=== PATIENT | male | born 1985 ===

== ENCOUNTER 2021-08-08 13:12 | Day surgery (SDC) | payer OTHER, BC ==
[~2021-08-08] VITALS: Ht 177.8 cm; Wt 87.4 kg
--- NOTE | 2021-08-08 15:38 | NUR ---
08/08/21 1538 Doc Hernandez BUPIVACAINE 0.5% 50 MLS MIXED WITH EPI 0.25ML PER ORDER TO CONSTITUTE BUPIVACAINE 0.5% 1:200,000 FOR INJECTION AT OPSITE BY DR WILLS. MULTI DOSE VIAL, MIXED & DIVIDED IN OR BY RN.
== END 2021-08-08 17:23 | disposition home or self-care (01) ==
LOC: ORSCSDS 13:12
PROVIDERS: Podiatrist Foot & Ankle Surgery
PROC: 0QSK04Z Reposition Left Fibula with Internal Fixation Device, Open Approach (ICD-10-PCS; principal; 2021-08-08 15:15)
DX: S82.842A Displaced bimalleolar fracture of left lower leg, initial encounter for closed fracture (principal); D69.6 Thrombocytopenia, unspecified
CPT/HCPCS: C1713; J0171; J0690; J1100; J1885; J2250; J2405; J2704; J3010; J7120

== ENCOUNTER → 2023-07-11 | Outpatient (CLI) | payer OTHER ==
[2023-07-11 09:41] LABS: BASOPHILS ABSOLUTE AUTO 0.02 K/mm3 (0.00-0.23); BASOPHILS PERCENT AUTO 1 % (0-2); EOSINOPHILS ABSOLUTE AUTO 0.11 K/mm3 (0.00-0.68); EOSINOPHILS PERCENT AUTO 3 % (0-6); Hematocrit 41.3 % (37.0-53.0); Hemoglobin 14.4 g/dL (13.5-17.5); IMMATURE GRAN ABSOLUTE AUTO 0.02 K/mm3 (0.00-0.10); IMMATURE GRAN PERCENT AUTO 1 % (0-1); LYMPHOCYTES ABSOLUTE AUTO 1.28 K/mm3 (0.84-5.20); LYMPHOCYTES PERCENT AUTO 31 % (21-46); MONOCYTES ABSOLUTE AUTO 0.24 K/mm3 (0.16-1.47); MONOCYTES PERCENT AUTO 6 % (4-13); Mean Corpuscular HGB 29.3 pg (26.0-34.0); Mean Corpuscular HGB Conc 34.9 g/dL (31.5-36.5); Mean Corpuscular Volume 84 fL (80-100); NEUTROPHILS ABSOLUTE AUTO 2.47 K/mm3 (1.96-9.15); NEUTROPHILS PERCENT AUTO 60 % (41-73); RDW Coefficient Variation 13.2 % (11.7-14.2); RDW Standard Deviation 39.8 fL (35.1-46.3); Red Blood Cell Count 4.91 M/mm3 (4.30-5.90); White Blood Cell Count 4.14 K/mm3 (4.00-11.30)
[2023-07-11 10:21] LABS: Mean Platelet Volume 10.6 fL (9.1-12.4); Platelet Count 120 K/mm3 (150-400)
== END | disposition home or self-care (01) ==
LOC: LAB 09:37 → LAB SHORT 09:37
PROVIDERS: Family Medicine
DX: L03.113 Cellulitis of right upper limb (principal)
CPT/HCPCS: 85025; 86140

== ENCOUNTER → 2025-08-15 | Outpatient (CLI) | payer OTHER ==
[2025-08-15 12:17] LABS: BODY FLUID RBC 0.007 M/mm3 (0-0)
[2025-08-15 12:24] LABS: Appearance, Synovial Fluid Cloudy (Clear); Color, Synovial Fluid Dark Yellow (None-P Yel); RBC Count, Synovial Fluid 7000 /mm3 (0-0); WBC Count, Synovial Fluid 113 /mm3 (0-180)
[2025-08-15 13:11] LABS: Lymphs, Synovial Fluid 74 % (0-15); Monocytes/Macrophages, Synovia 15 % (0-65); Neutrophils, Synovial Fluid 9 % (0-24)
== END | disposition home or self-care (01) ==
LOC: LAB SHORT 11:53 → LAB 11:53
PROVIDERS: Family Medicine
DX: M00.9 Pyogenic arthritis, unspecified (principal)
CPT/HCPCS: 89051; 89060